=== PATIENT | female | born 1975 | race Caucasian/White ===

== ENCOUNTER 2021-11-23 02:07 | Emergency (ER) | payer SELFPAY ==
[~2021-11-23] VITALS: Ht 162.6 cm; Wt 98.1 kg
[~2021-11-23 02:07] MED LIST: PREN-385 PO
[2021-11-23 02:15] VITALS: BP 107/64
--- NOTE | 2021-11-23 02:23 | NUR ---
PT TO LOBBY
--- NOTE | 2021-11-23 02:23 | NUR ---
URINE COLLECTED AND TAKEN TO LAB
[2021-11-23 03:07] LABS: BARBITURATE, URINE NEGATIVE ng/ml (NEG <=200); BENZODIAZEPINE, URINE NEGATIVE ng/mL (NEG <=200); CANNABINOID, URINE NEGATIVE ng/mL (NEG <=50); COCAINE, URINE NEGATIVE ng/mL (NEG <=300); OPIATE, URINE NEGATIVE ng/mL (NEG <=2000); PHENCYCLIDINE SCREEN,URINE NEGATIVE ng/mL (NEG <=25)
[2021-11-23 03:40] VITALS: BP 107/64
--- NOTE | 2021-11-23 03:40 | NUR ---
Patient discharged with v/s stable. Written and verbal after care instructions given and explained. Patient verbalized understanding. Ambulatory with steady gait. All questions addressed prior to discharge. Advised to follow up with PMD.
== END 2021-11-23 03:40 | disposition home or self-care (01) ==
LOC: MED 02:07
DX: R53.83 Other fatigue (principal)
CPT/HCPCS: 80305; 99283

== ENCOUNTER 2022-01-01 11:11 | Emergency (ER) | payer SELFPAY ==
[~2022-01-01] VITALS: Ht 162.6 cm; Wt 98.4 kg
[2022-01-01 11:23] VITALS: BP 115/74
[2022-01-01] MEDS ORDERED: ONDANSETRON 4 MG ODT PO ONE (12:40)
--- NOTE | 2022-01-01 12:44 | NUR ---
amb to er bed 11
[2022-01-01 13:08] LABS: BASOPHILS % (AUTO) 0.5 % (0.0-2.0); EOSINOPHILS # (AUTO) 0.1 K/uL (0-0.4); EOSINOPHILS % (AUTO) 1.9 % (0.0-4.0); HEMATOCRIT 43.4 % (36-48); LYMPHOCYTES % (AUTO) 27.3 % (20.5-51.1); MEAN CORPUSCULAR HEMOGLOBIN 30 pg (27-31); MEAN CORPUSCULAR HGB CONC 35 g/dL (33-37); MEAN CORPUSCULAR VOLUME 86.7 fL (80-94); MONOCYTES # (AUTO) 0.4 K/uL (0.8-1.0); NEUTROPHILS # (AUTO) 4.7 K/uL (1.8-7.7); NEUTROPHILS % (AUTO) 64.3 % (42.2-75.2); PLATELET COUNT (AUTO) 283 K/uL (140-450); RED CELL DISTRIBUTION WIDTH 12.7 % (11.6-13.7); WHITE BLOOD COUNT (AUTO) 7.3 K/uL (4.8-10.8)
[2022-01-01 13:23] LABS: ALBUMIN 3.6 g/dL (3.4-5.0); ANION GAP 10.9 (8-16); CARBON DIOXIDE 30.1 mmol/L (21-32); TOTAL BILIRUBIN 0.7 mg/dL (0.0-1.0)
[2022-01-01] MEDS ORDERED: ONDA-188 PO (14:00)
--- NOTE | 2022-01-01 14:03 | NUR ---
46/F PRESENTS TO ED WITH C/O ABDOMINAL PAIN, NAUSEA AND INTERMITTENT EPISODES OF DIZZINESS X1 WEEK. PATIENT REPORTS SYMPTOMS CAME ON SUDDENLY, DENIES TAKING MEDICATION FOR SYMPTOMS. PATIENT DENIES V/D OR URINARY SYMPTOMS, STATES SIMILAR PAIN IN THE PAST AND WAS DX WITH GALL STONES BUT STATES SHE REFUSES TO GET SURGERY OUT OF FEAR. REPORTS 10/10 SHARP PAIN THAT WORSENS AFTER MEALS. PATIENT DENIES VISION CHANGES, NUMBNESS, TINGLING.
[2022-01-01 14:40] VITALS: BP 111/70
== END 2022-01-01 14:40 | disposition home or self-care (01) ==
LOC: MED 11:11
DX: K80.20 Calculus of gallbladder without cholecystitis without obstruction (principal); R11.0 Nausea; R42 Dizziness and giddiness; Z79.899 Other long term (current) drug therapy
CPT/HCPCS: 36415; 71045; 74176; 80053; 81002; 81025; 83690; 84484; 85025; 93005; 99285; Q0092; Q0162; 99282

== ENCOUNTER 2022-12-10 00:20 | Emergency (ER) | payer SELFPAY ==
[~2022-12-10] VITALS: Ht 160 cm; Wt 98.4 kg
[~2022-12-10 00:20] MED LIST changes: +ONDA-188 PO
[2022-12-10 00:42] VITALS: BP 116/51; PULSE 77; RESP 18; TEMP 97; O2SAT 99
[2022-12-10 01:42] VITALS: TEMP 98
[2022-12-10 01:47] VITALS: BP 110/64; PULSE 68; RESP 18; O2SAT 100
[2022-12-10] MEDS ORDERED: ONDANSETRON 4 MG ODT PO ONE (02:05)
[2022-12-10] MEDS ORDERED: LORazepam 0.5 MG TAB PO ONE (02:05)
[2022-12-10] MEDS ORDERED: ALUMINUM HYD/MAG/SIMETHICONE 30 ML UDC ONE (02:44)
[2022-12-10] MEDS ORDERED: DICYCLOMINE HCL LIQUID 10 MG/5 ML UDC ONE (02:44)
[2022-12-10] MEDS ORDERED: DICYCLOMINE HCL LIQUID 20 MG, ALUMINUM HYD/MAG/SIMETHICONE 30 ML, LIDOCAINE VISCOUS 2% ... PO ONE ×3 (02:45)
[2022-12-10] MEDS ORDERED: HYDR25CA1 PO (04:09)
== END 2022-12-10 04:30 | disposition home or self-care (01) ==
LOC: MED 00:20
DX: F41.9 Anxiety disorder, unspecified (principal); Z79.899 Other long term (current) drug therapy
CPT/HCPCS: 81002; 81025; 99284; Q0162